=== PATIENT | female | born 1950 | race Caucasian/White ===

== ENCOUNTER → 2019-02-14 | Outpatient (CLI) | payer MEDICARE, OTHER ==
[~2019-02-14] MED LIST: RT-ALBUTEROL SULF 2.5 MG/3 ML PRE-MIX VIAL INH ONE; RT-ALBUTEROL SULF 2.5 MG/3 ML PRE-MIX VIAL ONE
== END ==
LOC: RT 10:37
PROVIDERS: ATTEND Pediatrics
DX: J43.9 Emphysema, unspecified (principal)
CPT/HCPCS: 94060; 94726; 94729

== ENCOUNTER → 2019-03-05 | Outpatient (CLI) | payer MEDICARE, OTHER ==
[2019-03-05 11:53] LABS: CHLORIDE 99 MMOL/L (98-107); POTASSIUM 3.8 MMOL/L (3.6-5.0); SODIUM 144 MMOL/L (135-145)
[2019-03-05 11:54] LABS: ALANINE AMINOTRANSFERASE 31 U/L (0-55); ALBUMIN 3.8 GM/DL (3.2-4.5); ALKALINE PHOSPHATASE 94 U/L (40-136); BILIRUBIN,TOTAL 0.7 MG/DL (0.1-1.0); BUN/CREATININE RATIO 10; CALCIUM 8.9 MG/DL (8.5-10.1); CARBON DIOXIDE 34 MMOL/L (21-32); CREATININE SERUM 0.58 MG/DL (0.60-1.30); GFR ESTIMATED > 60; GLUCOSE 181 MG/DL (70-105); TOTAL PROTEIN 7.7 GM/DL (6.4-8.2)
== END ==
LOC: LAB FS 11:06
PROVIDERS: ATTEND Pediatrics
DX: E11.9 Type 2 diabetes mellitus without complications (principal)
CPT/HCPCS: 36415; 80053; 83036

== ENCOUNTER 2023-04-26 16:43 | Emergency (ER) | payer MEDICARE, OTHER ==
[~2023-04-26] VITALS: Ht 157 cm; Wt 61.4 kg
--- NOTE | 2023-04-26 17:13 | ED Syncope ---
General Chief Complaint: Upper Extremity Stated Complaint: FELL,L ARM/HAND/WRIST/HIP PAIN Nursing Triage Note: Patient has presented to ER with cc of going to the answer the door and waking up the floor. She reports that she must have fallen but is not able to remember the fall. She reports that she has pain in her left hand, wrist, and left arm, she has scrapes on her left wrist. She reports pain in her left buttock area. Source of Information: Patient Exam Limitations: No Limitations History of Present Illness Date Seen by Provider: Apr 26, 2023 Time Seen by Provider: 16:55 Initial Comments This 73-year-old woman presents to the emergency room after experiencing a syncopal episode with collapse at her home. She was lying down when the doorbell rang. She quickly dale to go to the door and had a brief syncopal episode upon rising. Her heard the fall and walked into the room to find her on the floor. She was alert by the time he was at her side. Patient reports recently having multiple dental extractions. She has been eating poorly but thought she was drinking well. She has been taking Tylenol and ibuprofen for pain but still has significant pain. She has some minor abrasions on her left wrist. She complains of pain in the left hand. She also has some minor pain in the left hip but has been ambulatory. She denies any head or neck injury or pain. She has had no chest pain or shortness of breath. She does use supplemental oxygen at night. Allergies and Home Medications Allergies Coded Allergies: No Known Drug Allergies (Unverified , 02/14/19) Patient Home Medication List Home Medication List Reviewed: Yes Review of Systems Constitutional: no symptoms reported EENTM: see HPI Respiratory: no symptoms reported Cardiovascular: see HPI Gastrointestinal: no symptoms reported Genitourinary: no symptoms reported : No Musculoskeletal: see HPI Skin: see HPI Psychiatric/Neurological: No Symptoms Reported Past Mgxtzso-Ttjdrg-Vaqfuf Hx Patient Social History Tobacco Use?: Yes Tobacco type used: Cigarettes Smoking Status: Current Everyday Smoker Use of E-Cig and/or Vaping dev: No Substance use?: No Alcohol Use?: No Past Medical History Surgeries: Yes (Dental instructions) Section, Gallbladder Respiratory: Yes COPD (Uses supplemental oxygen at night) Cardiac: No Neurological: No : No Genitourinary: No Gastrointestinal: Yes Liver Disease/Jaundice (Fatty liver disease) Musculoskeletal: No Endocrine: No HEENT: No Cancer: No Psychosocial: No Integumentary: No Physical Exam Vital Signs Vital Signs - First Documented 04/26/23 16:56 Temp 36.4 Pulse 82 Resp 18 B/P (MAP) 121/67 (85) Pulse Ox 97 O2 Delivery Room Air Capillary Refill : Height, Weight, BMI Height: '" Weight: lbs. oz. kg; 24.00 BMI Method: General Appearance: No Apparent Distress, WD/WN HEENT: PERRL/EOMI, Normal ENT Inspection, Other (Postoperative changes from recent dental extraction) Neck: Normal Inspection Cardiovascular: Regular Rate, Rhythm, No Edema, No Murmur, Normal Peripheral Pulses Respiratory: Lungs Clear, Normal Breath Sounds, No Accessory Muscle Use Gastrointestinal: Normal Bowel Sounds, Non Tender, Soft Extremities: No Pedal Edema, Other (Minor left hip pain on palpation without pain on rotation. Tenderness and crepitus over the distal dorsal aspect of the left fourth and fifth metacarpals. Fingers and wrist relatively normal. Minor swelling present.) Neurologic/Psychiatric: Alert, Oriented x3, No Motor/Sensory Deficits, Normal Mood/Affect, band saw operator cake cutting II-XII Norm as Tested Cranial Nerves: Normal Speech, PERRL Motor/Sensory: No Motor Deficit, No Sensory Deficit Skin: Normal Color, Warm/Dry, Other (Abrasion on left wrist) Progress/Results/Core Measures Results/Orders Lab Results Laboratory Tests Test 04/26/23 16:59 04/26/23 17:05 04/26/23 18:53 Range/Units Glucometer 132 H 70-110 MG/DL White Blood Count 10.0 4.3-11.0 10^3/uL Red Blood Count 4.88 3.80-5.11 10^6/uL Hemoglobin 14.7 11.5-16.0 g/dL Hematocrit 43 35-52 % Mean Corpuscular Volume 89 80-99 fL Mean Corpuscular Hemoglobin 30 25-34 pg Mean Corpuscular Hemoglobin Concent 34 32-36 g/dL Red Cell Distribution Width 12.7 10.0-14.5 % Platelet Count 237 130-400 10^3/uL Mean Platelet Volume 9.6 9.0-12.2 fL Neutrophils (%) (Auto) 79 H 42-75 % Lymphocytes (%) (Auto) 14 12-44 % Monocytes (%) (Auto) 6 0-12 % Eosinophils (%) (Auto) 1 0-10 % Basophils (%) (Auto) 1 0-10 % Neutrophils # (Auto) 7.9 H 1.8-7.8 X 10^3 Lymphocytes # (Auto) 1.4 1.0-4.0 X 10^3 Monocytes # (Auto) 0.6 0.0-1.0 X 10^3 Eosinophils # (Auto) 0.1 0.0-0.3 10^3/uL Basophils # (Auto) 0.1 0.0-0.1 10^3/uL Sodium Level 141 135-145 MMOL/L Potassium Level 3.2 L 3.6-5.0 MMOL/L Chloride Level 102 98-107 MMOL/L Carbon Dioxide Level 24 21-32 MMOL/L Anion Gap 15 H 5-14 MMOL/L Blood Urea Nitrogen 14 7-18 MG/DL Creatinine 0.61 0.60-1.30 MG/DL Estimat Glomerular Filtration Rate 94 BUN/Creatinine Ratio 23 Glucose Level 145 H 70-105 MG/DL Calcium Level 9.2 8.5-10.1 MG/DL Magnesium Level 1.8 1.6-2.4 MG/DL Troponin I < 0.30 <0.30 NG/ML Smear Scan YES Urine Color YELLOW Urine Clarity SL CLOUDY Urine pH 6.0 5-9 Urine Specific [place] 1.015 L 1.016-1.022 Urine Protein NEGATIVE NEGATIVE Urine Glucose (UA) NEGATIVE NEGATIVE Urine Ketones NEGATIVE NEGATIVE Urine Nitrite POSITIVE H NEGATIVE Urine Bilirubin NEGATIVE NEGATIVE Urine Urobilinogen 0.2 < = 1.0 MG/DL Urine Leukocyte Esterase 2+ H NEGATIVE Urine RBC (Auto) NEGATIVE NEGATIVE Urine RBC NONE /HPF Urine WBC 50-100 H /HPF Urine Squamous Epithelial Cells 2-5 /HPF Urine Crystals NONE /LPF Urine Bacteria MODERATE H /HPF Urine Casts PRESENT /LPF Urine Hyaline Casts 0-2 H /LPF Urine Mucus SMALL H /LPF Urine Trichomonas FEW H /HPF Urine Culture Indicated YES My Orders Orders - OLIVIA PAUL MD Basic Metabolic Panel (04/26/23 16:56) Cbc With Automated Diff (04/26/23 16:56) Magnesium (04/26/23 16:56) Accucheck Stat ONCE (04/26/23 16:56) Ed Iv/Invasive Line Start (04/26/23 16:56) Ekg Tracing (04/26/23 16:56) Monitor-Rhythm Ecg Trace Only (04/26/23 16:56) Orthostatic Vital Signs (Adult (04/26/23 17:07) Ns Iv 1000 Ml (Sodium Chloride 0.9%) (04/26/23 17:15) Hand 3 View Left (04/26/23 17:08) Wrist 3 View Left (04/26/23 17:08) Pelvis With Left Hip 2-3 View (04/26/23 17:08) Ua Culture If Indicated (04/26/23 17:08) Troponin I Karie (04/26/23 17:24) Potassium Chloride (Tablet) (Klor Con Ta (04/26/23 18:15) Potassium Chloride (Tablet) (Klor Con Ta (04/26/23 18:16) Urine Culture (04/26/23 18:53) Potassium Chloride (Tablet) (Klor Con Ta (04/26/23 18:20) Cephalexin Capsule (Keflex Capsule) (04/26/23 19:58) Metronidazole Tablet (Flagyl Tablet) (04/26/23 19:58) Medications Given in ED Vital Signs/I&O 04/26/23 04/26/23 04/26/23 04/26/23 16:56 17:33 17:36 19:31 Temp 36.4 Pulse 82 72 79 79 77 85 79 85 Resp 18 B/P (MAP) 121/67 (85) 118/55 (76) 116/52 (73) 151/63 (92) 93/51 (65) 126/52 (76) 116/52 (73) 147/64 (91) Pulse Ox 97 O2 Delivery Room Air 04/26/23 20:12 Temp 36.4 Pulse 76 Resp 18 B/P (MAP) 126/52 Pulse Ox 96 O2 Delivery Room Air 04/27/23 00:00 Intake Total 1000 ml Balance 1000 ml Blood Pressure Mean: 85 FSBG Bedside Testing Finger Stick Blood Glucose: 132 Progress Progress Note #1: Time: 17:11 Progress Note Nursing triage report received and orders placed accordingly at 1655. Provider was in room for history and physical at 1657. Additional labs and x-rays orders and pending. Patient is stable at this time and does not require any immediate treatments. Further treatment and evaluation will be determined after results of pending studies including EKG, x-rays, labs, and orthostatic vital signs. A liter of IV normal saline has been ordered. Fingerstick blood sugar was 132. Progress Note #2: Progress Note Patient was interviewed and examined. She was alert and oriented. Vital signs were stable. Orthostatic blood pressures were reviewed. She did have a significant drop suggesting hypovolemia related to her poor intake after oral surgery. A liter of IV normal saline was infused. There was improvement in orthostatic vital signs after hydration and patient felt better. She did not h ave any lightheadedness upon standing after IV fluids. Labs were reviewed and interpreted by me in their entirety. CBC was unremarkable. BMP was significant for potassium of 3.2. Blood sugar was 145. Fingerstick blood sugar was 132. Urinalysis demonstrated pyuria with significant bacteria and WBCs present. Surprisingly, trichomonas was also present. Patient claims she has not been sexually active in many years. Hypokalemia was treated with oral potassium 40 mEq. UTI and trichomonas were treated with Keflex and Flagyl. EKG was reviewed. Rhythm was sinus with a normal rate. There were some ST changes and T wave inversion. They did not meet criteria for ischemia. Patient denied chest pain and troponin was negative. I did discuss EKG changes with Dr. Rolon who had no further recommendations from a cardiology perspective after discussion based on information he received from me. X-rays of the left hand and wrist were reviewed by me. There were obvious fractures of the fourth and fifth metacarpals. There was questionable fracture at the dorsum of the distal radius. This did not correlate with point tenderness on exam and is likely an old finding. Patient was placed in a Colles' splint and advised to follow-up with orthopedics. She wishes to select an orthopedist at a later time later this week. X-ray reports were also reviewed including x-rays of the left hip and pelvis. No additional fractures or injuries were identified. Care of this patient was disrupted by EMR downtime and care of an emergent postoperative hemorrhage. This prolonged length of stay and disrupted documentation. Some charting was performed on paper including the discharge instructions and prescriptions. Discharge instructions were reviewed with patient by me at 1999. Initial ECG Impression Date: Apr 26, 2023 Initial ECG Impression Time: 17:15 Initial ECG Rate: 74 Initial ECG Rhythm: Normal Sinus Comment Sinus rhythm with no ST elevation or depression. There is T wave inversion in some leads without diagnostic depression. No abnormal axis. Slightly shortened WI interval of 119 ms. Diagnostic Imaging Diagonstic Imaging: Xray Plain Films/CT/US/NM/MRI: pelvis, hip Comments NAME: [facility] REC#: [id number] PT STATUS: REG ER : 1950 PHYSICIAN: OLIVIA PAUL MD ADMIT DATE: 04/26/23/ER FS Signed Date of Exam:04/26/23 PELVIS WITH LEFT HIP 2-3 VIEW EXAMINATION: Left hip unilateral 2 or 3 views (w/pelvis when done) HISTORY: Fall, left hip pain COMPARISON: None available. FINDINGS: Frontal pelvis with a frog leg lateral views left hip. There is mild osteopenia limiting evaluation for nondisplaced fracture with no displaced fractures identified. No dislocations. Soft tissues unremarkable. IMPRESSION: No acute process. Dictated by: Dictated on workstation # [id number] Dict: 04/26/231732 Trans: 04/26/231822 [facility] [id number] Interpreted by: LEIDY AWAD MD Electronically signed by: LEIDY AWAD MD 04/26/231822 Diagonstic Imaging: Xray Plain Films/CT/US/NM/MRI: hand Comments NAME: [facility] REC#: [id number] PT STATUS: REG ER : 1950 PHYSICIAN: OLIVIA PAUL MD ADMIT DATE: 04/26/23/ER FS Signed Date of Exam:04/26/23 HAND 3 VIEW LEFT INDICATION: Trauma, pain. EXAMINATION: Left hand 04/26/2023 FINDINGS: 3 views of the hand. Oblique fractures of the 4th and 5th metacarpals noted along the mid and proximal aspect with intra-articular extension of the 5th metacarpal not excluded. Deformity of the posterior border of the radius is noted, age indeterminate. Remaining osseous structures intact. No dislocations. IMPRESSION: 1. Fractures of the 4th and 5th metacarpals as above. 2. Deformity of the dorsal radius correlate for point tenderness at this appears age indeterminate. Dictated by: Dictated on workstation # [id number] Dict: 04/26/235 Trans: 04/26/231822 [facility] [id number] Interpreted by: LEIDY AWAD MD Electronically signed by: LEIDY AWAD MD 04/26/231822 Diagonstic Imaging: Xray Plain Films/CT/US/NM/MRI: other (Left wrist) Comments NAME: [facility] REC#: [id number] PT STATUS: REG ER : 1950 PHYSICIAN: OLIVIA PAUL MD ADMIT DATE: 04/26/23/ER FS Signed Date of Exam:04/26/23 HAND 3 VIEW LEFT INDICATION: Trauma, pain. EXAMINATION: Left hand 04/26/2023 FINDINGS: 3 views of the hand. Oblique fractures of the 4th and 5th metacarpals noted along the mid and proximal aspect with intra-articular extension of the 5th metacarpal not excluded. Deformity of the posterior border of the radius is noted, age indeterminate. Remaining osseous structures intact. No dislocations. IMPRESSION: 1. Fractures of the 4th and 5th metacarpals as above. 2. Deformity of the dorsal radius correlate for point tenderness at this appears age indeterminate. Dictated by: Dictated on workstation # [id number] Dict: 04/26/231734 Trans: 04/26/231822 [facility] [id number] Interpreted by: LEIDY AWAD MD Electronically signed by: LEIDY AWAD MD 04/26/231822 Departure Impression Primary Impression: Syncope Qualified Codes: R55 - Syncope and collapse Additional Impressions: Hypokalemia Hypovolemia Urinary tract infection Qualified Codes: N39.0 - Urinary tract infection, site not specified Trichomonas infection Left hand fracture Qualified Codes: S62.92XA - Unspecified fracture of left wrist and hand, initial encounter for closed fracture Disposition: HOME, SELF-CARE Condition: Improved Departure-Patient Inst. Referrals: YUDITH MONET MD (PCP/Family) Primary Care Physician Copy Copies To 1: YUDITH MONET MD, JOSHUA T MD Apr 26, 2023 17:13
[2023-04-26] MEDS ORDERED: NS IV 1000 ML 1,000 ML IV SCH (17:15)
[2023-04-26 17:33] VITALS: BP 118/55
--- NOTE | 2023-04-26 17:35 | Diagnostic Imaging Report ---
EXAMINATION: Left hip unilateral 2 or 3 views (w/pelvis when done) HISTORY: Fall, left hip pain COMPARISON: None available. FINDINGS: Frontal pelvis with a frog leg lateral views left hip. There is mild osteopenia limiting evaluation for nondisplaced fracture with no displaced fractures identified. No dislocations. Soft tissues unremarkable. IMPRESSION: No acute process. Dictated by: Dictated on workstation # [id number]
[2023-04-26 17:36] VITALS: BP_SYST 116; BP_SYST 93; BP_DIAS 51; BP_DIAS 52
[2023-04-26 17:38] LABS: HEMATOCRIT 43 % (35-52); HEMOGLOBIN 14.7 g/dL (11.5-16.0); MEAN CORPUSCULAR HEMOGLOBIN 30 pg (25-34); MEAN CORPUSCULAR VOLUME 89 fL (80-99)
--- NOTE | 2023-04-26 17:38 | Diagnostic Imaging Report ---
INDICATION: Fall, pain. EXAMINATION: Left wrist 04/26/2023 FINDINGS: 3 views of the wrist. There are oblique fractures proximal 4th and 5th metacarpals. Intra-articular extension proximally difficult to exclude especially along the 5th metacarpal. Overlying soft tissue swelling seen in the dorsal wrist. Remaining osseous structures intact. IMPRESSION: 1. Fractures of the 4th and 5th metacarpals with surrounding soft tissue swelling. 2. Not mentioned in the body of the report, a questionable fracture along the dorsal aspect of the radius also noted age indeterminate. Correlate for focal pain. Dictated by: Dictated on workstation # [id number]
[2023-04-26 17:39] LABS: BASOPHILS # (AUTO) 0.1 10^3/uL (0.0-0.1); BASOPHILS % (AUTO) 1 % (0-10); EOSINOPHILS # (AUTO) 0.1 10^3/uL (0.0-0.3); EOSINOPHILS % (AUTO) 1 % (0-10); LYMPHOCYTES # (AUTO) 1.4 X 10^3 (1.0-4.0); LYMPHOCYTES % (AUTO) 14 % (12-44); MEAN CORPUSCULAR HGB CONC 34 g/dL (32-36); MEAN PLATELET VOLUME 9.6 fL (9.0-12.2); MONOCYTES # (AUTO) 0.6 X 10^3 (0.0-1.0); MONOCYTES % (AUTO) 6 % (0-12); NEUTROPHILS # (AUTO) 7.9 X 10^3 (1.8-7.8); NEUTROPHILS % (AUTO) 79 % (42-75); PLATELET COUNT 237 10^3/uL (130-400)
--- NOTE | 2023-04-26 17:39 | Diagnostic Imaging Report ---
INDICATION: Trauma, pain. EXAMINATION: Left hand 04/26/2023 FINDINGS: 3 views of the hand. Oblique fractures of the 4th and 5th metacarpals noted along the mid and proximal aspect with intra-articular extension of the 5th metacarpal not excluded. Deformity of the posterior border of the radius is noted, age indeterminate. Remaining osseous structures intact. No dislocations. IMPRESSION: 1. Fractures of the 4th and 5th metacarpals as above. 2. Deformity of the dorsal radius correlate for point tenderness at this appears age indeterminate. Dictated by: Dictated on workstation # [id number]
[2023-04-26 17:42] LABS: CALCIUM 9.2 MG/DL (8.5-10.1); CREATININE SERUM 0.61 MG/DL (0.60-1.30); MAGNESIUM 1.8 MG/DL (1.6-2.4); POTASSIUM 3.2 MMOL/L (3.6-5.0)
[2023-04-26 17:52] LABS: SMEAR SCAN COMMENT YES
[2023-04-26] MEDS ORDERED: KCL 10 MEQ TAB (MICRO K) PO ONE ×2 (18:15→18:20)
[2023-04-26] MEDS ORDERED: KCL 10 MEQ TAB (MICRO K) PO STA (18:16)
[2023-04-26 19:31] VITALS: BP_SYST 126; BP_SYST 147; BP_SYST 151; BP_DIAS 52; BP_DIAS 63; BP_DIAS 64
[2023-04-26 19:41] LABS: BACTERIA,URINE MODERATE /HPF; BILIRUBIN,URINE NEGATIVE (NEGATIVE); CLARITY,URINE SL CLOUDY; COLOR,URINE YELLOW; GLUCOSE, URINE (UA) NEGATIVE (NEGATIVE); HYALINE CASTS, URINE 0-2 /LPF; KETONES,URINE NEGATIVE (NEGATIVE); LEUKOCYTE ESTERASE ,URINE 2+ (NEGATIVE); NITRITE,URINE POSITIVE (NEGATIVE); PROTEIN,URINE NEGATIVE (NEGATIVE); WBC,URINE 50-100 /HPF
[2023-04-26 19:42] LABS: TRICHOMONAS,URINE FEW /HPF
[2023-04-26] MEDS ORDERED: metroNIDAZOLE 500 MG (FLAGYL) TAB ONE (19:58)
[2023-04-26] MEDS ORDERED: CEPHALEXIN 250 MG (KEFLEX) CAP PO ONE (19:58)
[2023-04-26 20:12] VITALS: BP 126/52
== END 2023-04-26 20:12 | disposition home or self-care (01) ==
LOC: EDUNIT# 16:43 → ER FS 16:45
DX: S62.92XA Unspecified fracture of left hand, initial encounter for closed fracture (principal); N39.0 Urinary tract infection, site not specified; A59.9 Trichomoniasis, unspecified; E87.6 Hypokalemia; E86.1 Hypovolemia; R55 Syncope and collapse; F17.210 Nicotine dependence, cigarettes, uncomplicated; W19.XXXA Unspecified fall, initial encounter; Y92.009 Unspecified place in unspecified non-institutional (private) residence as the place of occurrence of the external cause
CPT/HCPCS: 36415; 73110; 73130; 73502; 80048; 81000; 82947; 83735; 84484; 85025; 87077; 87088; 93005; 93041